=== PATIENT | female | born 1935 | race Two or more races ===

== ENCOUNTER 2019-07-10 09:08 | Outpatient (CLI) | payer OTHER | END 2019-07-10 09:18 | disposition home or self-care (01) | LOC: NUCLEAR 09:08 | DX: I11.9 Hypertensive heart disease without heart failure (principal); R07.89 Other chest pain; R53.83 Other fatigue ==

== ENCOUNTER 2023-01-01 15:39 | Outpatient (CLI) | payer OTHER | END 2023-01-01 15:40 | disposition home or self-care (01) | LOC: NUCLEAR 15:39 | PROVIDERS: ATTEND Internal Medicine Cardiovascular Disease | DX: C34.31 Malignant neoplasm of lower lobe, right bronchus or lung (principal) | CPT/HCPCS: 78815; A9552 ==